=== PATIENT | female | born 1985 | race Caucasian/White ===

== ENCOUNTER 2017-03-25 15:36 | Emergency (ER) | payer BC ==
[~2017-03-25] VITALS: Ht 165.1 cm; Wt 80.7 kg
[2017-03-25 16:04] VITALS: BP 141/93
[2017-03-25] MEDS ORDERED: LIDOCAINE 1% ED 50 ML ONE (17:42)
[2017-03-25] MEDS: LIDOCAINE 1% 500 MG/50 ML VIAL INJ ONE (18:28)
[2017-03-25 18:30] VITALS: BP 128/88
== END 2017-03-25 18:29 | disposition home or self-care (01) ==
LOC: MED 15:36
DX: K61.0 Anal abscess (principal)
CPT/HCPCS: 10060; 99283; J2001